=== PATIENT | female | born 1945 | race Caucasian/White ===

== ENCOUNTER → 2019-03-01 | Outpatient (CLI) | payer MEDICARE, BC | END | disposition home or self-care (01) | LOC: PCVCCLINIC 14:09 | PROVIDERS: ATTEND Internal Medicine | DX: I25.10 Atherosclerotic heart disease of native coronary artery without angina pectoris (principal); I10 Essential (primary) hypertension; R53.83 Other fatigue; E78.5 Hyperlipidemia, unspecified; F17.200 Nicotine dependence, unspecified, uncomplicated; Z79.899 Other long term (current) drug therapy | CPT/HCPCS: 93005; G0463 ==

== ENCOUNTER → 2019-03-15 | Outpatient (CLI) | payer MEDICARE, BC ==
[~2019-03-15] MED LIST: REGADENOSON 0.4 MG/5 ML DISP.SYRIN. IV ONE
--- NOTE | 2019-03-15 10:40 | PCVCIMAG ---
APPROVED REPORT Study performed: 03/15/2019 08:32:17 EXAM: Comprehensive 2D, Doppler, and color-flow Echocardiogram Patient Location: Echo lab Status: routine BSA: 1.61 HR: 70 bpmBP: 122/70 mmHg Rhythm: NSR Other Information Study Quality: Good Risk Factors: Cardiac Risk Factors: HTN, Hyperlipidemia, Smoking Indications Fatigue 2D Dimensions IVSd: 9.99 (7-11mm)LVOT Diam: 16.71 (18-24mm) LVDd: 42.62 mm PWd: 10.04 (7-11mm)Ascending Ao: 39.91 (22-36mm) LVDs: 24.02 (25-40mm) Left Atrium: 25.89 (27-40mm) Aortic Root: 30.85 mm LV Single Plane 4CH: 66.03 % LV Single Plane 2CH: 62.30 % Biplane EF: 64.5 % Volumes Left Atrial Volume (Systole) Single Plane 4CH: 18.76 mLSingle Plane 2CH: 26.79 mL LA ESV Index: 16.00 mL/m2 Aortic Valve AoV Peak Alvaro.: 1.64 m/s AO Peak Gr.: 10.80 mmHg AI Vmax: 4.13 m/s AI [place]: 3.24 m/s2 AI PHT: 370.15 ms Mitral Valve E/A Ratio: 0.8 MV Decel. Time: 285.47 ms MV E Max Alvaro.: 0.87 m/s MV A Alvaro.: 1.05 m/s IVRT: 124.57 ms TDI E/Lateral E': 12.43E/Medial E': 12.43 Medial E' Alvaro.: 0.07 m/s Lateral E' Alvaro.: 0.07 m/s Pulmonary Valve PV Peak Gr.: 1.84 mmHg Pulmonary Vein P Vein S: 0.63 m/sP Vein A: 0.31 m/s P Vein D: 0.35 m/sP Vein A Dur.: 124.6 msec P Vein S/D Ratio: 1.80 Tricuspid Valve TR Peak Alvaro.: 2.26 m/s TR Peak Gr.: 20.42 mmHg Left Ventricle The left ventricle is normal size. There is normal LV segmental wall motion. There is normal left ventricular wall thickness. Left ventricular systolic function is normal. The left ventricular ejection fraction is within the normal range. LVEF is 55-60%. Right Ventricle The right ventricle is normal size. The right ventricular systolic function is normal. Atria The left atrium size is normal. The right atrium size is normal. Aortic Valve The aortic valve is normal in structure. Trace to mild aortic regurgitation. There is no aortic valvular stenosis. Mitral Valve The mitral valve is normal in structure. Trace to mild mitral regurgitation. No evidence of mitral valve stenosis. Tricuspid Valve The tricuspid valve is normal in structure. Trace tricuspid regurgitation. Pulmonary artery pressure is 27mmhg. Pulmonic Valve The pulmonary valve is normal in structure. There is no pulmonic valvular regurgitation. Great Vessels The aortic root is normal in size. The ascending aorta is borderline dilated. IVC is normal in size and collapses >50% with inspiration. Pericardium There is no pericardial effusion. <Conclusion> The left ventricle is normal size. LVEF is 55-60%. The aortic valve is normal in structure. Trace to mild aortic regurgitation. The mitral valve is normal in structure. Trace to mild mitral regurgitation. The tricuspid valve is normal in structure. Trace tricuspid regurgitation. Pulmonary artery pressure is 27mmhg. The pulmonary valve is normal in structure. There is no pericardial effusion.
--- NOTE | 2019-03-15 13:08 | PCVCIMAG ---
APPROVED REPORT Imaging Protocol: Rest Tc-99m/Stress Tc-99m 1 day Study performed: 03/15/2019 09:50:33 Indication: Dyspnea, Fatigue, Indegestion Patient Location: Out-Patient Stress Nurse: Beatrice Dong RN MI Tech:Maurice Hunter NMGONAZLOB Ht: 5 ft 0 in Wt: 142 lbs BSA: 1.61 m2 HR: 65 bpm BP: 143/65 mmHg BMI: 27.7 Rhythm: Normal Sinus Rhythm Medical History Medical History: Age, Hyperlipidemia, HTN, CAD, Smoker Medications: Klonopin, Simvastatin Allergies: No known drug allergies Exercise History: Indeterminate Physical Disabilities: Groin injury Resting Data Rest SPECT myocardial perfusion imaging was performed in supine position 45 minutes following the intravenous injection of 11 mCi of Tc-99m Sestamibi. Time of rest injection: 914 Date: 03/15/2019 Administration Route: IV Administration Site: Right AC Pharmacologic Stress Pharmacologic stress test was performed by injecting Regadenoson 0.4 mg IV push over 10-15 seconds immediately followed by the intravenous injection of 36 mCi of Tc-99m Sestamibi. Time of stress injection: 1030 Date: 03/15/2019 Administration Route: IV Administration Site: Right AC Gated Stress SPECT was performed 45 minutes after stress injection. The images were gated to evaluate regional wall motion and calculate left ventricular ejection fraction. Stress Test Details Stress Test: Pharmacologic stress was paired with low level exercise. Reason for pharmacologic stress test: Groin injury. HRMax Heart Rate (APMHR): 148 bpm Resting HR: 65 bpmTarget HR (85% APMHR): 125 bpm Max HR Achieved: 117 bpm % of APMHR: 79 Recovery HR: 89 bpm BP Resting BP: 143/65 mmHg Max BP: 173/75 mmHg Recovery BP: 147/59 mmHg ECG Resting ECG: Sinus Rhythm Stress ECG: Sinus Tachycardia Arrhythmia: PVC's Recovery ECG: Sinus Rhythm Clinical Reason for Termination: Completed protocol Stress Symptoms: Dyspnea, Headache Symptoms resolved with caffeine. Stress ECG Conclusion 1. Adequate response to iv lexiscan 2. Inadequate heart rate for ECG diagnosis Study Data Post stress, the left ventricular ejection was 80%.. SSS: 0 SRS: 2 SDS: 0 TID = 0.83. Perfusion There is a large area of moderately reduced uptake in the entireand apical segment of the inferior wall which is seen on the stress images as well as the resting images. This area thickens and moves normally and is most consistent with attenuation artifact. Wall Motion Normal left ventricular wall motion. Nuclear Conclusion ECG Findings: non-diagnostic Clinical Findings: negative for ischemia Nuclear Findings: negative for ischemia Exercise Capacity: not assessed Left Ventricular Function: normal 1. low risk study 2. post stress lvef 80% without wall motion abnormalities Interpreted by: Vickie León MD Electronically Approved: 03/15/2019 13:07:39 <Conclusion> 1. Adequate response to iv lexiscan 2. Inadequate heart rate for ECG diagnosis
== END | disposition home or self-care (01) ==
LOC: PCVCIMAG 08:26
PROVIDERS: ATTEND Internal Medicine
DX: I08.0 Rheumatic disorders of both mitral and aortic valves (principal); I25.10 Atherosclerotic heart disease of native coronary artery without angina pectoris; R53.83 Other fatigue; I10 Essential (primary) hypertension; F17.200 Nicotine dependence, unspecified, uncomplicated
CPT/HCPCS: 78452; 93017; 93306; A9500; G0463; J2785